=== PATIENT | female | born 1980 | race Two or more races ===

== ENCOUNTER 2017-06-01 10:06 | Emergency (ER) | payer BC ==
[~2017-06-01] VITALS: Ht 165.1 cm; Wt 63.0 kg
[2017-06-01 10:18] VITALS: Ht 165.1 cm; Wt 63.0 kg
[2017-06-01 12:15] VITALS: BP 118/63
== END 2017-06-01 12:15 | disposition home or self-care (01) ==
LOC: ED 10:06
DX: R07.81 Pleurodynia (principal)
CPT/HCPCS: J1885